=== PATIENT | female | born 1970 | race Caucasian/White ===

== ENCOUNTER 2018-01-11 08:05 | Emergency (ER) | payer OTHER ==
[~2018-01-11] VITALS: Ht 157.5 cm; Wt 70.3 kg
[~2018-01-11 08:05] MED LIST: BENICAR20 MG PO; CEFADROXIL500 MG PO; NO TOMA NADA; SYNTHROID100 MCG PO
== END 2018-01-11 21:24 | disposition home or self-care (01) ==
LOC: ER 08:05
DX: R53.1 Weakness (principal)